=== PATIENT | female | born 2000 | race Caucasian/White ===

== ENCOUNTER 2022-04-24 08:09 | Emergency (ER) | payer OTHER, SELFPAY ==
--- NOTE | 2022-04-24 08:11 | ED.URI ---
HPI - URI/Sore Throat General Chief Complaint: Upper Respiratory Infection Stated Complaint: FEVER/SORE THROAT Time Seen by Provider: 04/24/22 08:11 Source: patient Mode of arrival: ambulatory Limitations: no limitations History of Present Illness HPI Narrative: Ms. Warren is a 22-year-old female patient presenting to the clinic today with complaints of fever and sore throat x1 day She reports she began having fever and body aches and sore throat yesterday. Rates her pain about a 3 out of 10 currently. She reports she took Motrin yesterday for the fever and that she broke her fever this morning. Related Data Home Medications Medication Instructions Recorded Confirmed drospirenone 3 mg-ethinyl tablet 04/24/22 estradiol 0.02 mg tablet Allergies Allergy/AdvReac Type Severity Reaction Status Date / Time No Known Allergies Allergy Verified 04/24/22 08:28 Review of Systems Review of Systems: Pertinent positives per HPI. Patient denies any rash, headache, visual changes, dizziness, cough, runny nose, shortness of breath, chest pain, palpitations, nausea, vomiting, diarrhea, constipation, abdominal pain, or any urinary issues. PMFSH Comments At the time of my signature, I reviewed and agree with the nursing past medical, surgical, social, and family history. There is no relevant family history pertinent to the patient complaint. Exam Narrative: General: Well-developed, well nourished, in no apparent distress Head: Normocephalic, atraumatic Eyes: Pupils equally round and reactive to light bilaterally, EOM intact, sclera and conjunctive clear, no discharge, lids normal Ears: TMs intact and clear, ear canals clear, no drainage, grossly hearing normal. Nose: Nares patent, no discharge, no inflammation, no sinus tenderness. Mouth: Oropharynx without lesions or masses, good dentition, MMM. Oropharynx mildly red Neck: Supple, trachea midline, no enlargement of anterior or posterior cervical nodes, no thyroid masses or goiter palpable. Cardio: Regular rate and rhythm, s1 and s2 normal, no murmur appreciated. Resp: Clear to auscultation bilaterally anteriorly and posteriorly, no rhonchi, rales, wheezing or rubs Course Course Emergency Course: Portions of this record may have been created with voice recognition software. Level of Care: Express Care Visit Vital Signs Vital signs: Vital Signs Temperature 37.3 C 04/24/22 08:24 Pulse Rate 83 04/24/22 08:24 Respiratory Rate 16 04/24/22 08:24 Blood Pressure 113/84 04/24/22 08:24 Pulse Oximetry 100 04/24/22 08:24 Oxygen Delivery Room Air 04/24/22 08:24 Temperature 37.3 C 04/24/22 08:24 Pulse Rate 83 04/24/22 08:24 Respiratory Rate 16 04/24/22 08:24 Blood Pressure 113/84 04/24/22 08:24 Pulse Oximetry 100 04/24/22 08:24 Oxygen Delivery Room Air 04/24/22 08:24 Vital signs reviewed MDM - URI/Sore Throat MDM Narrative Medical decision making narrative: At the time of visit patient is resting comfortably on the exam table. Strep screen was obtained and was negative in the clinic. Recommend that the patient do COVID testing in 48 hours to see if that is positive. Supportive measures were discussed with the patient she voiced understanding of discharge instructions and agrees to treatment plan. Differential Diagnosis Differential diagnosis: Likely upper respiratory infection, otitis media, sinusitis, viral infection, bronchitis, influenza, pharyngitis and other Lab Data Labs: Strep Screen Presumptive Negative *(Reference Range: Negative)* Discharge Plan Discharge Clinical Impression: Upper respiratory infection Qualifiers: URI type: unspecified viral URI Qualified Code(s): J06.9 - Acute upper respiratory infection, unspecified Pharyngitis Qualifiers: Pharyngitis/tonsillitis etiology: unspecified etiology Qualified Code(s): J02.9 - Acute pharyngitis,
[2022-04-24 08:24] VITALS: BP 113/84; PULSE 83; RESP 16; TEMP 37.3; O2SAT 100
== END 2022-04-24 09:06 | disposition home or self-care (01) ==
PROVIDERS: Emergency Provider Nurse Practitioner Family
DX: J06.9 Acute upper respiratory infection, unspecified (principal); J02.9 Acute pharyngitis, unspecified
CPT/HCPCS: 87081; 87880; 99213; G0463

== ENCOUNTER → 2023-09-08 13:23 | Outpatient (CLI) | payer OTHER, BC, SELFPAY ==
--- NOTE | ~2023-09-08 | US_ITS ---
EXAMINATION: 1. US OB <= 14 weeks fetus 2. US OB <= 14 wk fetus add gest DATE: 09/08/2023 13:52 INDICATION: Twin gestation. Uncertain dates. TECHNIQUE: Real-time transabdominal pelvic ultrasound was performed. COMPARISON: None. FINDINGS: The uterus measures 10.3 x 6.5 x 4.9 cm. There are 2 intrauterine gestational sacs, each with a yolk sac and pole. There is a subchorionic hematoma measuring 1.1 x 4.7 x 1.0 cm. The crown ru mp length for fetus A measures 2.5 cm, which correlates with an estimated gestational age of 9 weeks and 2 day(s) (+/-) 6 day(s). heart motion for fetus A is identified measuring 157 beats per min kristi (bpm) by M-mode Doppler. The crown rump length for fetus B measures 2.3 cm, which correlates with an estimated gestation al age of 9 weeks and 0 day(s) (+/-) 6 day(s). heart motion for fetus B is identified measuring 165 beats per minute (bpm) by M-mode Doppler. The right ovary is not visualized. The left ovary measures 2.9 x 2.2 x 2.9 cm. There is no free fluid in the pelvis. IMPRESSION: 1. Living intrauterine dichorionic, diamniotic twin gestation. 2. Small subchorionic hematoma. Reviewed, dictated and finalized at location E. R SHOVEL OPERATOR IMPRESSION: 1. Living intrauterine dichorionic, diamniotic twin gestation. 2. Small subchorionic hematoma.
== END ==
PROVIDERS: PCP Advanced Practice Midwife; Visit Provider Advanced Practice Midwife
DX: O46.90 Antepartum hemorrhage, unspecified, unspecified trimester (principal); O36.80X0 Pregnancy with inconclusive fetal viability, not applicable or unspecified; Z3A.00 Weeks of gestation of pregnancy not specified
CPT/HCPCS: 76801; 76802

== ENCOUNTER 2023-09-21 13:55 | Outpatient (CLI) | payer OTHER, BC, SELFPAY ==
--- NOTE | ~2023-09-21 | US_ITS ---
EXAMINATION: 1. US OB <= 14 weeks fetus 2. US OB <= 14 wk fetus add gest DATE: 09/21/2023 14:35 INDICATION: First trimester spotting. TECHNIQUE: Real-time transabdominal pelvic ultrasound was performed. COMPARISON: Ultrasound 09/08/23 FINDINGS: The uterus measures 12.3 x 5.4 x 8.2 cm. There are two intrauterine gestational sacs by a t hick membrane. The crown rump length measures 5.0 cm for fetus A, which correlates with an brook mated gestational age of 11 weeks and 5 day(s) (+/-) 1 week(s) and 0 day(s) and 4.2 cm for fetus B, which correlates with an estimated gestational age of 11 weeks and 1 day(s) (+/-) 1 week(s) and 0 day (s). heart motion is identified measuring 158 beats per minute (bpm) for fetus A and 153 bpm fo r fetus B by M-mode Doppler. A yolk sac is identified with fetus B. There is a small subchorionic hem atoma. The cervical length is 2.8 cm, which is normal. The ovaries are not visualized. There is no fr ee fluid in the pelvis. IMPRESSION: 1. Living intrauterine dichorionic, diamniotic twin gestation. 2. Small subchorionic hematoma. Reviewed, dictated and finalized at location A. D CARE MANAGER IMPRESSION: 1. Living intrauterine dichorionic, diamniotic twin gestation. 2. Small subchorionic hematoma.
== END 2023-09-21 13:56 ==
PROVIDERS: PCP Advanced Practice Midwife; Visit Provider Advanced Practice Midwife
DX: O26.851 Spotting complicating pregnancy, first trimester (principal); O30.049 Twin pregnancy, dichorionic/diamniotic, unspecified trimester; Z3A.00 Weeks of gestation of pregnancy not specified
CPT/HCPCS: 76801; 76802

== ENCOUNTER 2023-09-23 20:23 | Outpatient (RCR) | payer OTHER, BC, SELFPAY ==
[2023-09-23] MEDS: RHO(D) IMMUNE GLOBULIN 300 MCG/2 ML SYRINGE IM (21:08)
== END 2023-12-22 23:59 | disposition home or self-care (01) ==
LOC: ANHOBOP 20:23
PROVIDERS: PCP Advanced Practice Midwife; Visit Provider Obstetrics & Gynecology Gynecology
DX: Z29.13 Encounter for prophylactic Rho(D) immune globulin (principal); O36.0190 Maternal care for anti-D [Rh] antibodies, unspecified trimester, not applicable or unspecified; Z3A.00 Weeks of gestation of pregnancy not specified
CPT/HCPCS: 36415; 85461; 86850; 86900; 86901; 90384; J2790

== ENCOUNTER 2023-10-23 11:20 | Outpatient (CLI) | payer OTHER, BC, SELFPAY ==
--- NOTE | ~2023-10-23 | US_ITS ---
EXAMINATION: US OB limited DATE: 10/23/2023 11:59 INDICATION: Subchorionic hematoma during second trimester twin TECHNIQUE: Real-time ultrasound of the pelvis was performed. The interpreting radiologist was not pre sent for the study. COMPARISON: 09/21/2023 FINDINGS: There are two intrauterine pregnancies by a thin membrane. Baby A is in breech pr esentation and baby B is in variable presentation. No persistent subchorionic hematoma is identified. The placenta is for baby A is anterior and 4.4 cm from the internal cervical os. The placenta for ba by B is posterior. cardiac activity and movement are noted. heart rate is 145 beats per minute (bpm) for baby A and 138 bpm for baby B. The amniotic fluid index is subjectively normal. IMPRESSION: 1. Living dichorionic, diamniotic twin gestation. No persistent subchorionic hematoma identified. Reviewed, dictated and finalized at location F. HASING CONTRACTING CLERK IMPRESSION: 1. Living dichorionic, diamniotic twin gestation. No persistent subchorionic he matoma identified.
== END 2023-10-23 11:21 ==
LOC: MICIMG 11:22
PROVIDERS: PCP Advanced Practice Midwife; Visit Provider Obstetrics & Gynecology Gynecology
DX: O36.8920 Maternal care for other specified fetal problems, second trimester, not applicable or unspecified (principal); O30.042 Twin pregnancy, dichorionic/diamniotic, second trimester; Z3A.00 Weeks of gestation of pregnancy not specified
CPT/HCPCS: 76815

== ENCOUNTER 2024-01-06 09:44 | Observation (INO) | payer OTHER, BC, SELFPAY ==
[2024-01-06 10:15] VITALS: BMI 29.2
[2024-01-06 10:30] VITALS: BP 107/67; PULSE 84
[2024-01-06 10:45] VITALS: BP 114/76; PULSE 97
[2024-01-06 10:52] VITALS: TEMP 36.6
--- NOTE | 2024-01-06 10:56 | OBADM ---
This patient, Enedina Warren, admitted to the OB room OB Post 116 for observation. Patient/family oriented to hospital policies and general routines including ID bracelet, bed and alarms, visiting hours, pain management, procedures, bathroom and other care routines, personal items, smoking policy, room service/diet, and visiting hours. Patient/Family are encouraged to report perceived risks to care and to ask questions if they do not understand what they are told or what they should do.
--- NOTE | 2024-01-13 08:41 | P.PNOB_ITS ---
OB - Triage/Final Diagnosis Visit Information Date of evaluation: 01/06/24 Reason for evaluation: other (facial numbness) Comments/Additional reasons for admission: I have assessed the risk for this patient, Enedina Warren, and determined that she would benefit from observation care. Evaluation Comments: Pt evaluated on unit by RN. Plan of care discussed with CNM. FHTs reassuring. VS S. No evidence of active labor or ROM. Pt to ED for evaluation by .
== END 2024-01-06 11:06 ==
PROVIDERS: Admitting Provider Obstetrics & Gynecology Gynecology; PCP Family Medicine; Visit Provider Obstetrics & Gynecology Gynecology
DX: O26.892 Other specified pregnancy related conditions, second trimester (principal); R20.0 Anesthesia of skin; Z3A.26 26 weeks gestation of pregnancy
CPT/HCPCS: 99283; G0378; G0379

== ENCOUNTER 2024-01-06 11:14 | Emergency (ER) | payer OTHER, BC, SELFPAY ==
[2024-01-06 11:18] VITALS: BP 104/75; PULSE 95; RESP 18; TEMP 36.8; O2SAT 100
--- NOTE | 2024-01-06 12:44 | ED.NEUROSD ---
HPI - Neuro Symptoms/Deficit General Chief Complaint: Neuro Symptoms/Deficit Stated Complaint: numbness and facial droop right side Time Seen by Provider: 01/06/24 12:06 History of Present Illness HPI Narrative: Patient is a 23-year-old female who presents ER with numbness to the right face. She reports 2 days ago she began have tingling of her tongue which affected her taste. She then began noticing weakness to her smile and with closing her eye yesterday. No numbness or weakness down her arm or leg. No slurred speech. No difficulty swallowing. Patient is 26 weeks with twins. She has had no complications up to this point. She has not had a recent viral illness that she is aware of. Related Data Allergies Allergy/AdvReac Type Severity Reaction Status Date / Time No Known Allergies Allergy Verified 01/06/24 11:21 Review of Systems Constitutional: Constitutional: Reports no additional constitutional complaints ENT: Reports system reviewed and no additional complaints, except as documented Cardiovascular: Cardiovascular: Reports no additional cardiovascular complaints Respiratory: Respiratory: Reports no additional respiratory complaints Genitourinary: Genitourinary: Reports no additional female genitourinary complaints Integumentary/Breasts: Skin/Breast: Reports system reviewed and no additional complaints, except as docu Neurologic: Denies headache(s), Reports focal weakness and Denies numbness Comments: Paresthesia PMFSH Past Medical History Medical History (Updated 01/06/24 @ 12:54 by Casey Mathews MD) ADHD Family History Family History Grandparent Alcoholism Social History Social History Smoking status: Former smoker Tobacco type: e-cigarettes/vaping Alcohol intake: current Alcohol use details: occasionally Substance use: never Substance use type: does not use Lack of Transportation: No Lack of Food: Never True Current Housing: I Have Housing Concerned About Future Housing: No Difficulty Paying Gas/Electric Bills: No Difficulty Paying for Meds: No Currently Unemployed: No Education: Bachelor's Degree Difficulty w/ Childcare or Family Care: No Exam Narrative: GENERAL: Well-appearing, well-nourished, and in no acute distress. HEAD: Normocephalic, atraumatic. EYES: PERRL and EOMI. ENT: Mucous membranes moist. CHEST: Clear to auscultation. No respiratory distress. HEART: Regular rate and rhythm. Normal peripheral pulses. SKIN: Warm, dry, no rash. NEURO: weakness of the right face with lifting the eyebrow and closing the eye, additionally mild weakness with smiling. Consistent with Crowley's palsy. Alert and oriented x3. PSYCH: Normal mood and affect. Course Course Emergency Course: Patient clinically has Crowley's palsy. We will start her on prednisone and valacyclovir. She is 26 weeks gestation these are the medications. Discussed with Dr. Crowell. Vital Signs Vital signs: Vital Signs Temperature 98.3 F 01/06/24 11:18 Pulse Rate 95 01/06/24 11:18 Respiratory Rate 18 01/06/24 11:18 Blood Pressure 104/75 01/06/24 11:18 Pulse Oximetry 100 01/06/24 11:18 Oxygen Delivery Room Air 01/06/24 11:18 Temperature 98.3 F 01/06/24 11:18 Pulse Rate 95 01/06/24 11:18 Respiratory Rate 18 01/06/24 11:18 Blood Pressure 104/75 01/06/24 11:18 Pulse Oximetry 100 01/06/24 11:18 Oxygen Delivery Room Air 01/06/24 11:18 Discharge Plan Discharge Clinical Impression: Crowley's palsy Patient Disposition: Home, Self-Care Condition: Stable Instructions: Crowley Palsy (ED) Additional Instructions: Your being started on prednisone and valacyclovir Crowley's palsy. He will be on this medication for 1 week. Return to the ER if you cannot breathe, he cannot swallow, you have focal weakness in arm
== END 2024-01-06 13:08 | disposition home or self-care (01) ==
PROVIDERS: Emergency Provider Emergency Medicine; PCP Family Medicine
DX: O26.892 Other specified pregnancy related conditions, second trimester (principal); G51.0 Bell's palsy; Z3A.26 26 weeks gestation of pregnancy; O30.002 Twin pregnancy, unspecified number of placenta and unspecified number of amniotic sacs, second trimester
CPT/HCPCS: 99283

== ENCOUNTER 2024-04-04 11:47 | Emergency (ER) | payer OTHER, SELFPAY ==
--- NOTE | 2024-04-04 11:53 | ED.SKABFB ---
HPI - Skin/Abscess/Foreign Bdy General Chief complaint: Skin/Abscess/Foreign Body Stated complaint: Mastitus Time Seen by Provider: 04/04/24 11:53 Source: patient Mode of arrival: ambulatory Limitations: no limitations History of Present Illness HPI narrative: Enedina is a 24-year-old female patient presenting to the clinic today with complaints of possible mastitis to the right breast. She reports symptoms started yesterday with breast pain, fever, chills, and body aches. Is currently breast feeding twins. States she is able to still get about 1 ounce out of the right breast. Has tried warm compresses, Motrin, and warm shower with minimal relief. Had this occur in the same breast a couple weeks ago and she was able to relieve with treatment that she has tried this time. Highest fever was 102 ? F. Patient had HELP syndrome with her . Related Data Allergies Allergy/AdvReac Type Severity Reaction Status Date / Time No Known Allergies Allergy Verified 04/04/24 12:04 Review of Systems Review of Systems: Pertinent positives per HPI. Patient denies any rash, headache, visual changes, dizziness, cough, runny nose, sore throat, shortness of breath, chest pain, palpitations, nausea, vomiting, diarrhea, constipation, abdominal pain, or any urinary issues. [facility] Past Medical History Medical History ADHD Family History Family History Grandparent Alcoholism Social History Social History Smoking status: Former smoker Tobacco type: e-cigarettes/vaping Alcohol intake: current Alcohol use details: occasionally Substance use: never Substance use type: does not use Lack of Transportation: No Lack of Food: Never True Current Housing: I Have Housing Concerned About Future Housing: No Difficulty Paying Gas/Electric Bills: No Difficulty Paying for Meds: No Currently Unemployed: No Education: Bachelor's Degree Difficulty w/ Childcare or Family Care: No Comments At the time of my signature, I reviewed and agree with the nursing past medical, surgical, social, and family history. There is no relevant family history pertinent to the patient complaint. Exam Narrative: General: Well-developed, well nourished, in no apparent distress Head: Normocephalic, atraumatic. Cardio: Tachycardic rate and rhythm, s1 and s2 normal, no murmur appreciated. Chest wall: Right breast with redness and swelling to the upper medial breast lobe, induration palpable without fluctuation to the upper medial breast lobe and mild induration without fluctuance to the right upper outer breast lobe. No purulent nipple discharge Resp: Clear to auscultation bilaterally, no rhonchi, rales, wheezing or rubs. Course Course Emergency Course: Portions of this record may have been created with voice recognition software. Level of Care: Express Care Visit Vital Signs Vital signs: Vital Signs Temperature 37.0 C 04/04/24 12:03 Pulse Rate 130 H 04/04/24 12:03 Respiratory Rate 16 04/04/24 12:03 Blood Pressure 92/61 L 04/04/24 12:03 Pulse Oximetry 98 04/04/24 12:03 Temperature 37.0 C 04/04/24 12:03 Pulse Rate 130 H 04/04/24 12:03 Respiratory Rate 16 04/04/24 12:03 Blood Pressure 92/61 L 04/04/24 12:03 Pulse Oximetry 98 04/04/24 12:03 Vital signs reviewed MDM - Skin/Abscess/Foreign Bdy MDM Narrative Medical decision making narrative: At the time of visit patient is resting comfortably on the exam table. Plan: I suspect patient has acute right lactational mastitis. No palpable abscess. Will place on cephalexin and have her follow-up with her primary care doctor this week. Supportive measures were discussed with the patient and they voiced understanding discharge instructions and agrees to treatmen
[2024-04-04 12:03] VITALS: BP 92/61; PULSE 130; RESP 16; TEMP 37; O2SAT 98
--- NOTE | 2024-04-04 13:09 | PC.NURSE ---
1300 patient contacted by provider-refer to his note.
== END 2024-04-04 12:24 | disposition home or self-care (01) ==
PROVIDERS: Emergency Provider Nurse Practitioner Family; PCP Family Medicine
DX: N61.0 Mastitis without abscess (principal); F17.290 Nicotine dependence, other tobacco product, uncomplicated
CPT/HCPCS: 99213; G0463

== ENCOUNTER 2024-04-04 14:15 | Emergency (ER) | payer OTHER, SELFPAY ==
--- NOTE | ~2024-04-04 | US_ITS ---
US breast RT limited INDICATION: Breast pain. Evaluate for abscess. TECHNIQUE: Dedicated Limited right breast ultrasound COMPARISON: No prior studies for comparison. FINDINGS: The right breast is composed of normal heterogeneous echotexture without focal solid or cys tic mass. No discrete fluid collection to suggest abscess. IMPRESSION: 1: Normal limited right breast ultrasound. BI-RADS CATEGORY 1 - NEGATIVE Reviewed, dictated and finalized at location B.
[2024-04-04 15:01] VITALS: BP 139/83; PULSE 130; RESP 18; TEMP 39.4; O2SAT 99
--- NOTE | 2024-04-04 15:09 | ED.GENADULT ---
HPI - General Adult General Chief complaint: Unspecified <Melissa Schilling APRN - Last Filed: 04/04/24 16:37> Stated complaint: UC this AM. Pt thinks she has mastitis <Melissa Schilling APRN - Last Filed: 04/04/24 16:37> Time Seen by Provider: 04/04/24 16:33 <Melissa Schilling APRN - Last Filed: 04/04/24 16:37> Focused HPI: Pt is a 24-year-old female who presents to the ER with complaints of R sided breast pain, redness and swelling. She went to this morning and was sent home with a prescription for Keflex. The GLASS CUT OFF TENDER at called her back and advised her to go to the ER d/t her tachycardia and being febrile. Pt reports she took Ibuprofen @ 1030 this AM. Her Keflex prescription was called in but pt hasn't picked it up from pharmacy yet. GENERAL: Well-appearing, well-nourished, and in no acute distress. HEAD: Normocephalic, atraumatic. CHEST: Clear to auscultation. ?No respiratory distress. HEART: Tachycardia but regular rhythm. NEURO: ?Alert and oriented x3. Skin: Pt's R breast is warm and she endorses tenderness to the touch. There is no palpable abscess on pt's R breast. Patient screened in triage and initial orders placed.? ?Additional care and disposition to be based upon?diagnostic testing and treatment. <Melissa Schilling APRN - Last Filed: 04/04/24 16:37> Source: patient and family <Melissa Schilling APRN - Last Filed: 04/04/24 16:37> Mode of arrival: ambulatory <Melissa Schilling APRN - Last Filed: 04/04/24 16:37> Limitations: no limitations <Melissa Schilling APRN - Last Filed: 04/04/24 16:37> History of Present Illness HPI narrative: This is a 24-year-old female presenting to the ED for right-sided breast pain, swelling, tenderness, fever, chills, tachycardia. She has been breast-feeding intermittently but mostly pump feeding her new to infants at home. She had an emergency over 6 weeks prior as been well healed from that. Denies any abdominal pain, vaginal pain or discharge. States over last 24 hours she has developed fever, chills, rigors, tachycardia and right-sided breast pain. She went to Urgent Care today who initially prescribed Keflex for mastitis however after obtaining her vital signs were concerned that she could be developing a significant infection and sent her to the emergency department for evaluation. Denies any recent surgeries other than her . No drainage other than milk from the right breast. No contralateral breast issues. No trauma or injuries. <Trey Leyva MD - Last Filed: 04/04/24 20:17> Related Data Allergies/adverse reactions: Allergies Allergy/AdvReac Type Severity Reaction Status Date / Time No Known Allergies Allergy Verified 04/04/24 14:16 <Melissa Schilling APRN - Last Filed: 04/04/24 16:37> Review of Systems Review of Systems: As reviewed above in HPI <Trey Leyva MD - Last Filed: 04/04/24 20:17> [facility] Past Medical History Medical History: Medical History ADHD <Melissa Schilling APRN - Last Filed: 04/04/24 16:37> Family History Family History: Family History Grandparent Alcoholism <Melissa Schilling APRN - Last Filed: 04/04/24 16:37> Social History Social History: Social History Smoking status: Former smoker Tobacco type: e-cigarettes/vaping Alcohol intake: current Alcohol use details: occasionally Substance use: never Substance use type: does not use Lack of Transportation: No Lack of Food: Never True Current Housing: I Have Housing Concerned About Future Housing: No Difficulty Paying Gas/Electric Bills: No Difficulty Paying for Meds: No Currently Unemployed: No Education: Bachelor's Degree Difficulty w/ Childcare or Fa
[2024-04-04] MEDS: ACETAMINOPHEN 500 MG TABLET 1000 MG PO (15:17)
[2024-04-04 15:18] VITALS: PULSE 111
[2024-04-04 15:19] VITALS: RESP 20; O2SAT 100
[2024-04-04 15:38] LABS: Basophils Percent Auto 0.1 % (0.2-1.2); Eosinophils Percent Auto 0.1 % (0-4.4); Hematocrit 33.3 % (37.0-47.0); Hemoglobin 10.8 g/dL (12.0-15.0); Immature Granulocyte Absolute 0.07 K/mm3 (0.00-0.031); Immature Granulocyte Percent A 0.5 % (0-0.5); Lymphocytes Absolute Auto 0.49 K/mm3 (0.9-3.2); Lymphocytes Percent Auto 3.6 % (18.3-44.2); Mean Corpuscular HGB Conc 32.4 g/dl (32-36); Mean Corpuscular Hemoglobin 28.8 pg (26-34); Mean Corpuscular Volume 88.8 fl (80-100); Mean Platelet Volume 11.1 fl (7.4-10.4); Monocytes Absolute Auto 0.4 K/mm3 (0.1-0.6); Monocytes Percent Auto 3.1 % (2.6-8.5); Neutrophils Absolute Auto 12.6 K/mm3 (1.3-6.7); Neutrophils Percent Auto 92.6 % (45.5-73.1); Platelet Count Result 200 k/mm3 (150-375); Red Blood Count 3.75 M/mm3 (4.2-5.4); Red Cell Distribution Width 13.8 % (11.5-14.5); White Blood Count 13.7 K/mm3 (4.5-10.0)
[2024-04-04 15:50] LABS: Lactic Acid Reflex 0.7 mmol/L (0.7-2.0)
[2024-04-04 15:51] LABS: Add Urine Microscopic? NO; Appearance Urine Clear (Clear); Bacteria Urine None Seen /hpf; Bilirubin Urine Negative (Negative); Blood Urine Non-Hemolyzed Trace (Negative); Color Urine Yellow (Yellow); Glucose Urine UA Negative (Negative); Ketones Urine Trace mg/dL (Negative); Leukocyte Esterase Ur Negative LEU/UL (Negative); Nitrate Urine Negative (Negative); Non Pathogenic Casts 0-2; Protein Urine Negative (Negative); Specific Grav Ur 1.017 (1.001-1.035); Squamous Epithelial Cell Urine None Seen /hpf (Few); Urobilinogen Urine 0.2 mg/dL (<2.0); WBC Urine 0-5 /hpf (0-3)
[2024-04-04 15:51] LABS: INR 1.1; Prothrombin Time 14.4 Seconds (11.1-14.7)
[2024-04-04 15:52] LABS: Alanine Aminotransferase 22 U/L (6-35); Albumin Level 4.1 g/dL (3.5-5.1); Alkaline Phosphatase 85 U/L (38-126); Anion Gap 11 mmol/L (4-12); Aspartate Amino Transferase 25 U/L (14-36); Bilirubin,Total 0.4 mg/dL (0.2-1.3); Blood Urea Nitrogen 9 mg/dL (7-17); CRP 5.6 mg/dL (<1.0); Calcium 8.3 mg/dL (8.4-10.2); Carbon Dioxide 21 mmol/L (22-30); Chloride 103 mmol/L (98-107); Estimated Glomerular Filt Rate > 60; Glucose 107 mg/dL (65-110); Partial Thromboplastin Time 26.3 Seconds (22.3-36.8); Potassium 3.3 mmol/L (3.4-5.0); Sodium 135 mmol/L (137-145)
[2024-04-04] MEDS: LACTATED RINGERS 1,000 ML 999 ML IV CONT (17:03)
[2024-04-04] MEDS: IBUPROFEN 400 MG TABLET 800 MG PO (17:04)
[2024-04-04] MEDS: CLINDAMYCIN 600 MG/D5W 50 ML 600 MG/50 ML PIGGYBACK 100 MG IVPB (17:28)
[2024-04-04 20:10] VITALS: BP 98/63; PULSE 90; RESP 12; O2SAT 98
[2024-04-04 20:17] VITALS: TEMP 36.8
== END 2024-04-04 20:37 | disposition home or self-care (01) ==
PROVIDERS: Registered Nurse; Emergency Provider Student in an Organized Health Care Education/Training Program; PCP Family Medicine
DX: N61.0 Mastitis without abscess (principal); Z87.891 Personal history of nicotine dependence
CPT/HCPCS: 36415; 76642; 80053; 81003; 83605; 85025; 85610; 85730; 86140; 87040; 96365; 99284; A9270; J7120